=== PATIENT | male | born 1995 | race Caucasian/White ===

== ENCOUNTER 2016-05-16 17:32 | Emergency (ER) | payer BC ==
[2016-05-16 17:39] VITALS: BP 144/70; PULSE 111; TEMP 98.5; BMI 22.6
== END 2016-05-16 18:22 | disposition left against medical advice (07) ==
LOC: JER 17:32
DX: Z53.21 Procedure and treatment not carried out due to patient leaving prior to being seen by health care provider (principal)
CPT/HCPCS: 99281-25

== ENCOUNTER 2016-07-01 08:27 | Emergency (ER) | payer OTHER, BC ==
[2016-07-01 08:31] VITALS: BP 116/76; PULSE 89; TEMP 98; BMI 24.2
[2016-07-01] MEDS ORDERED: IBUPROFEN 400 MG TABLET (FP) PO ONE (09:14)
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
== END 2016-07-01 11:39 | disposition home or self-care (01) ==
LOC: JERFT 08:27
DX: S29.012A Strain of muscle and tendon of back wall of thorax, initial encounter (principal); V43.52XA Car driver injured in collision with other type car in traffic accident, initial encounter; Y93.89 Activity, other specified; Y92.410 Unspecified street and highway as the place of occurrence of the external cause; F98.8 Other specified behavioral and emotional disorders with onset usually occurring in childhood and adolescence; Z72.0 Tobacco use
CPT/HCPCS: 99281-25

== ENCOUNTER 2020-04-03 10:56 | Emergency (ER) | payer BC ==
[2020-04-03 11:18] VITALS: BP 141/66; PULSE 84; TEMP 98.1; BMI 28.1
[2020-04-03] MEDS ORDERED: ACETAMINOPHEN INJECTION 100 ML IVPB ONE (13:12)
[2020-04-03] MEDS ORDERED: ACETAMINOPHEN 1000 MG/100 ML VIAL (NON FORMULARY) IVPB ONE (14:07)
[2020-04-03 14:34] LABS: BASO % 0.5 % (0-2.0); EOS % 4.4 % (0-4.5); HEMATOCRIT 44.9 % (35.4-49); HEMOGLOBIN 15.3 GM/dL (11.7-16.9); LYMPH % 37.3 % (8-40); MCHC 34.1 g/dl (32.0-35.9); MEAN CELL VOLUME 90.7 fl (80-96); MEAN PLT VOLUME 8.7 fl (7.5-11.1); MONO % 7.3 % (3.8-10.2); NEUT % 50.5 % (42.8-82.8); PLATELET COUNT 290 K/MM3 (134-434); RBC 4.95 M/mm3 (4.00-5.60); WHITE BLOOD COUNT 7.4 K/mm3 (4.0-10.0)
[2020-04-03 14:54] LABS: POTASSIUM 4.6 mmol/L (3.5-5.1)
[2020-04-03 14:58] LABS: ALBUMIN 4.4 g/dl (3.4-5.0); BLOOD UREA NITROGEN 12.1 mg/dL (7-18); CALCIUM 9.2 mg/dL (8.5-10.1)
[2020-04-03 15:01] LABS: CREATININE 0.9 mg/dL (0.55-1.3)
[2020-04-03 15:03] LABS: BILIRUBIN,TOTAL 2.3 mg/dL (0.2-1); TOT PROT 8.3 g/dl (6.4-8.2)
[2020-04-03 15:24] LABS: URINE APPEARANCE CLEAR; URINE BILIRUBIN NEGATIVE (NEGATIVE); URINE COLOR YELLOW; URINE GLUCOSE (UA) NEGATIVE (NEGATIVE); URINE KETONE 1+ (NEGATIVE); URINE LEUK ESTERASE NEGATIVE (NEGATIVE); URINE NITRITE NEGATIVE (NEGATIVE); URINE PROTEIN NEGATIVE (NEGATIVE)
== END 2020-04-03 17:14 | disposition home or self-care (01) ==
LOC: JER 10:56
PROC: 3E0333Z Introduction of Anti-inflammatory into Peripheral Vein, Percutaneous Approach (ICD-10-PCS; principal; 2020-04-03)
DX: R10.31 Right lower quadrant pain (principal)
CPT/HCPCS: 74176-TC; 80053; 81003; 85025; 87086; 99284-25; J0131

== ENCOUNTER 2020-07-15 04:42 | Day surgery (SDC) | payer BC ==
[2020-07-14 09:34] VITALS: BMI 28.6
[2020-07-15] MEDS ORDERED: BUPIVACAINE HCL 100 ML ONE (12:59)
[2020-07-15] MEDS ORDERED: BUPIVACAINE HCL/PF 0.25% (2.5MG/ML) 10 ML VIAL ONE (13:20)
[2020-07-15] MEDS ORDERED: ceFAZolin SODIUM 1 GM VIAL ONE (15:30)
[2020-07-15] MEDS ORDERED: LIDOCAINE HCL/PF 2% SDV 5ML VIAL ONE (15:30)
[2020-07-15] MEDS ORDERED: LIDOCAINE HCL 2% JELLY (5 ML/TUBE) ONE (15:30)
[2020-07-15] MEDS ORDERED: ONDANSETRON 4 MG/2 ML VIAL ONE (15:30)
[2020-07-15] MEDS ORDERED: SUCCINYLCHOLINE CHLORIDE 200 MG/10 ML SYRINGE ONE (15:33)
[2020-07-15] MEDS ORDERED: PROPOFOL 20 ML ONE ×2 (15:33)
[2020-07-15] MEDS ORDERED: EPHEDRINE SULFATE/0.9% NACL/PF 50 MG/10 ML SYRINGE NR ONE (15:34)
[2020-07-15] MEDS ORDERED: MIDAZOLAM HCL 2 MG/2 ML SINGLE DOSE VIAL ONE (15:35)
[2020-07-15] MEDS ORDERED: KETAMINE HCL 200 MG/20 ML VIAL ONE (15:35)
[2020-07-15] MEDS ORDERED: oxyCODONE HCL 5 MG TABLET PO PRN (15:46)
[2020-07-15] MEDS ORDERED: ACETAMINOPHEN 500 MG TABLET (FP) PO PRN (15:46)
[2020-07-15] MEDS ORDERED: ONDANSETRON 4 MG/2 ML VIAL IVPUSH PRN (15:46)
[2020-07-15] MEDS ORDERED: PROMETHAZINE HCL 25 MG/1 ML VIAL IVPUSH PRN (15:46)
[2020-07-15] MEDS ORDERED: ceFAZolin SODIUM 1 GM VIAL IVPB ONE (15:50)
[2020-07-15] MEDS ORDERED: LACTATED RINGERS SOLUTION 1,000 ML IV SCH (16:00)
[2020-07-15] MEDS ORDERED: BUPIVACAINE HCL/PF 0.25% (2.5MG/ML) 10 ML VIAL IJ ONE (16:35)
[2020-07-15] MEDS ORDERED: ACETAMINOPHEN INJECTION 100 ML IVPB ONE (17:24)
[2020-07-15] MEDS ORDERED: oxyCODONE HCL 5 MG TABLET ONE (18:44)
[2020-07-15 19:49] VITALS: BP 118/73; PULSE 85; TEMP 97.8
== END 2020-07-15 21:09 | disposition home or self-care (01) ==
LOC: JASU-SURG 04:42
PROVIDERS: ATTEND Urology
PROC: 0VB60ZZ Excision of Right Tunica Vaginalis, Open Approach (ICD-10-PCS; principal; 2020-07-15 13:30)
DX: N43.2 Other hydrocele (principal)
CPT/HCPCS: 88108; 88304-TC; 88305-TC; 88331-TC; 94760; J0131

== ENCOUNTER 2021-08-21 08:09 | Emergency (ER) | payer OTHER, BC ==
[2021-08-21 08:19] VITALS: BP 128/82; PULSE 97; TEMP 97.7; BMI 32.3
[2021-08-21] MEDS ORDERED: TETRACAINE 0.5% HCL 0.6ML DROPPER.BOTTLE OS ONE (08:22)
[2021-08-21] MEDS ORDERED: TETRACAINE 0.5% OPHTH SOLN 2 ML BOTTLE ONE ×2 (08:23→08:33)
[2021-08-21] MEDS ORDERED: FLUORESCEIN NA 1 EA STRIP OS ONE (08:23)
[2021-08-21] MEDS ORDERED: FLUORESCEIN NA 1 EA STRIP ONE ×2 (08:23→08:33)
[2021-08-21] MEDS ORDERED: KETOROLAC TROMETHAMINE 30 MG/1 ML VIAL IM ONE (09:01)
[2021-08-21] MEDS ORDERED: IBUPROFEN 600 MG TABLET (FP) PO ONE ×2 (09:16→09:30)
[2021-08-21] MEDS ORDERED: ERYTHROMYCIN 0.5% OPHTHALMIC OINTMENT 3.5 GM TUBE OS ONE (09:17)
[2021-08-21] MEDS ORDERED: ERYTHROMYCIN 0.5% OPHTHALMIC OINTMENT 3.5 GM TUBE ONE (09:32)
== END 2021-08-21 09:40 | disposition home or self-care (01) ==
LOC: JERFT 08:09
DX: S05.02XA Injury of conjunctiva and corneal abrasion without foreign body, left eye, initial encounter (principal); W45.8XXA Other foreign body or object entering through skin, initial encounter; W31.2XXA Contact with powered woodworking and forming machines, initial encounter
CPT/HCPCS: 99283-25

== ENCOUNTER 2021-09-15 15:12 | Emergency (ER) | payer OTHER, BC ==
[2021-09-15 15:28] VITALS: BP 120/82; PULSE 86; RESP 20; TEMP 98.2; BMI 32.3
[2021-09-15] MEDS ORDERED: DIPHTH,PERTUSS(ACELL),TET 0.5 ML DISP.SYRIN IM ONE ×2 (15:49→15:53)
== END 2021-09-15 16:44 | disposition home or self-care (01) ==
LOC: JERFT 15:12
PROC: 3E0234Z Introduction of Serum, Toxoid and Vaccine into Muscle, Percutaneous Approach (ICD-10-PCS; principal; 2021-09-15)
DX: S61.231A Puncture wound without foreign body of left index finger without damage to nail, initial encounter (principal); W27.8XXA Contact with other nonpowered hand tool, initial encounter
CPT/HCPCS: 73140-TC-LT-FY; 90715; 99284-25

== ENCOUNTER 2022-01-10 18:35 | Inpatient (IN) | payer BC, OTHER ==
[2022-01-10 18:43] VITALS: BMI 33.0
[2022-01-10] MEDS ORDERED: ACETAMINOPHEN 1000 MG/100 ML BAG IVPB ONE (19:24)
[2022-01-10] MEDS ORDERED: ACETAMINOPHEN INJECTION 100 ML IVPB ONE (19:25)
[2022-01-10 19:53] LABS: HEMATOCRIT 46.8 % (35.4-49); HEMOGLOBIN 16.5 G/dL (11.7-16.9); MCH 31.6 pg (25.7-33.7); MCHC 35.2 g/dl (32.0-35.9); MEAN CELL VOLUME 89.7 fl (80-96); PLATELET COUNT 319.3 10^3/uL (134-434); RBC 5.22 10^6/uL (4.00-5.60); RDW 13.5 % (11.9-15.9); WHITE BLOOD COUNT 13.4 10^3/uL (4.0-10.8)
[2022-01-10 19:55] LABS: AMORP PHOS 1+ /hpf (NONE SEEN); EPITHELIAL CELLS FEW /hpf
[2022-01-10 20:04] LABS: PLATELET ESTIMATE ADEQUATE
[2022-01-10 20:06] LABS: ALBUMIN 4.5 g/dl (3.4-5.0); BILIRUBIN,TOTAL 1.3 mg/dl (0.2-1); CALCIUM 8.9 mg/dl (8.5-10); TOT PROT 7.8 g/dl (6.4-8.2)
[2022-01-10] MEDS ORDERED: KETOROLAC TROMETHAMINE 30 MG/1 ML VIAL IVPUSH ONE (20:40)
[2022-01-10] MEDS ORDERED: KETOROLAC TROMETHAMINE 30 MG/1 ML VIAL ONE (20:42)
[2022-01-10] MEDS ORDERED: PIPERACILLIN/TAZOB 3.375 GM 3.375 GM in DEXTROSE 5%-WATER - 50 ML IVPB ONE (21:55)
[2022-01-10] MEDS ORDERED: PIPERACILLIN/TAZOBACTAM 3.375 GM VIAL IVPB ONE (22:02)
[2022-01-10] MEDS ORDERED: TAMSULOSIN HCL 0.4 MG CAP PO ONE (22:06)
[2022-01-10] MEDS ORDERED: TAMSULOSIN HCL 0.4 MG CAP ONE (22:29)
[2022-01-11] MEDS ORDERED: cefTRIAXone SODIUM 1 GM VIAL ONE (08:58)
[2022-01-11] MEDS ORDERED: TAMSULOSIN HCL 0.4 MG CAP ONE (08:59)
[2022-01-11] MEDS: CEFTRIAXONE 1 GM in DEXTROSE 5%-WATER - 50 ML IVPB SCH (09:02)
[2022-01-11] MEDS: TAMSULOSIN HCL 0.4 MG CAP PO SCH (09:02)
[2022-01-11 09:11] LABS: MCH 31.2 pg (25.7-33.7); MCHC 34.7 g/dl (32.0-35.9); MEAN CELL VOLUME 89.7 fl (80-96); MEAN PLT VOLUME 7.8 fl (7.5-11.1); PLATELET COUNT 304.6 10^3/uL (134-434); RBC 5.13 10^6/uL (4.00-5.60); RDW 13.8 % (11.9-15.9); WHITE BLOOD COUNT 10.2 10^3/uL (4.0-10.8)
[2022-01-11 09:28] LABS: ALBUMIN 4.1 g/dl (3.4-5.0); BILIRUBIN,TOTAL 1.8 mg/dl (0.2-1); CALCIUM 8.9 mg/dl (8.5-10); CREATININE 0.9 mg/dl (0.55-1.3)
[2022-01-11 09:30] LABS: PHOSPHOROUS 3.9 mg/dl (2.5-4.9); TOT PROT 7.1 g/dl (6.4-8.2)
[2022-01-11 10:01] LABS: EPITHELIAL CELLS FEW /hpf
[2022-01-11] MEDS ORDERED: ACETAMINOPHEN INJECTION 100 ML IVPB ONE (10:35)
[2022-01-11] MEDS: ACETAMINOPHEN 1000 MG/100 ML BAG IVPB PRN ×2 (10:38→18:44)
[2022-01-11] MEDS ORDERED: LACTATED RINGERS SOLUTION 1,000 ML IV SCH (16:00)
[2022-01-12] MEDS: ACETAMINOPHEN 1000 MG/100 ML BAG IVPB PRN (00:44)
[2022-01-12] MEDS: TAMSULOSIN HCL 0.4 MG CAP PO SCH (08:58)
[2022-01-12] MEDS: CEFTRIAXONE 1 GM in DEXTROSE 5%-WATER - 50 ML IVPB SCH (10:33)
[2022-01-12 11:08] LABS: BASO % 0.3 % (0-2.0); EOS % 4.8 % (0-4.5); HEMATOCRIT 45.6 % (35.4-49); HEMOGLOBIN 15.3 GM/dL (11.7-16.9); MCH 30.3 pg (25.7-33.7); MCHC 33.6 g/dl (32.0-35.9); MEAN CELL VOLUME 90.1 fl (80-96); MEAN PLT VOLUME 8.5 fl (7.5-11.1); MONO % 7.4 % (3.8-10.2); NEUT % 51.5 % (42.8-82.8); PLATELET COUNT 335 10^3/uL (134-434); RBC 5.05 M/mm3 (4.00-5.60); RDW 12.9 % (11.9-15.9); WHITE BLOOD COUNT 7.4 K/mm3 (4.0-10.0)
[2022-01-12 12:15] VITALS: RESP 18
[2022-01-12 12:49] LABS: ALBUMIN 3.6 g/dl (3.4-5.0); BLOOD UREA NITROGEN 14.3 mg/dL (7-18); CALCIUM 8.9 mg/dL (8.5-10.1); CREATININE 0.8 mg/dL (0.55-1.3); TOT PROT 7.2 g/dl (6.4-8.2)
[2022-01-12 14:48] VITALS: BP 105/64; PULSE 81; TEMP 97.5
== END 2022-01-12 19:39 | disposition home or self-care (01) | DRG 689 ==
LOC: FER 18:35 → J6W 01-11 16:21
PROVIDERS: ADMIT Internal Medicine; ATTEND Internal Medicine
DX: N13.6 Pyonephrosis (principal); U07.1 COVID-19; F98.8 Other specified behavioral and emotional disorders with onset usually occurring in childhood and adolescence; E66.9 Obesity, unspecified; Z68.33 Body mass index [BMI] 33.0-33.9, adult
CPT/HCPCS: 0241U-QW; 36415; 74176-TC; 76775-TC; 80053; 81003; 81015; 83690; 83735; 84100; 85025; 85027; 87086; 93005; 99285-25